=== PATIENT | male | born 1980 | race Caucasian/White ===

== ENCOUNTER 2020-04-27 23:29 | Emergency (ER) | payer SELFPAY ==
[~2020-04-27] VITALS: Ht 172.7 cm; Wt 99.8 kg
[2020-04-27] MEDS ORDERED: EPINEPHrine 0.1 MG/ML 10 ML (HOSPIRA) SYR IJ ONE (23:33)
[2020-04-27] MEDS ORDERED: SODIUM BICARB 8.4% 50 MEQ/50 ML (ABBOTT) SYR INJ ONE (23:33)
--- NOTE | 2020-04-27 23:48 | NUR ---
2332 PT ARRIVES [facility]IA [facility] WITH CPR IN PROGRESS. PT TRANSFERRED TO ER CART. CPR RESUMES. BVM VIA LMA PER RT. 2334 ECO2 40. CPR HELD FOR PULSE CHECK. PEA SHOWING ON MONITOR. RESUMED COMPRESSIONS. 2335 1MG EPINEPHRINE IO PUSH 2337 CPR HELD FOR PULSE CHECK. ASYSTOLE WITH AGONAL BEATS SHOWING ON MONITOR. RESUMED COMPRESSIONS. 2338 50MEQ/50ML SODIUM BICARB IO PUSH 2341 CPR HELD FOR PULSE CHECK. ASYSTOLE WITH AGONAL BEATS SHOWING ON MONITOR. RESUMED COMPRESSIONS. 2342 1MG EPINEPHRINE IO PUSH 2343 CPR HELD FOR PULSE CHECK. PEA ON MONITOR SHOWING ON MONITOR. RESUMED COMPRESSIONS. 2346 1MG EPINEPHRINE IO PUSH 2347 CPR HELD FOR PULSE CHECK. ASYSTOLE SHOWING ON MONITOR. 2348 TIME OF [address] STILL
[2020-04-28 00:15] LABS: BILIRUBIN,URINE NEGATIVE (NEGATIVE); CLARITY,URINE CLEAR; COLOR,URINE YELLOW; GLUCOSE, URINE (UA) NEGATIVE (NEGATIVE); KETONES,URINE NEGATIVE (NEGATIVE); LEUKOCYTE ESTERASE ,URINE NEGATIVE (NEGATIVE); NITRITE,URINE NEGATIVE (NEGATIVE); PROTEIN,URINE TRACE (NEGATIVE)
[2020-04-28 00:28] LABS: ALBUMIN 2.5 GM/DL (3.2-4.5); BACTERIA,URINE FEW /HPF; CHLORIDE 115 MMOL/L (98-107); RENAL EPITHELIAL CELLS,URINE 0-2 /HPF; SODIUM 152 MMOL/L (135-145); URINE OTHER FEW SPERM /HPF; WBC,URINE 0-2 /HPF
[2020-04-28 00:29] LABS: AMPHETAMINE SCREEN, URINE POSITIVE (NEGATIVE); BARBITURATE SCREEN URINE NEGATIVE (NEGATIVE); BENZODIAZEPINES SCREEN URINE NEGATIVE (NEGATIVE); CALCIUM 6.7 MG/DL (8.5-10.1); CANNABINOID SCREEN, URINE NEGATIVE (NEGATIVE); COCAINE SCREEN URINE NEGATIVE (NEGATIVE); METHADONE STAT NEGATIVE (NEGATIVE); METHAMPHETAMINE SCREEN URINE S POSITIVE (NEGATIVE); OPIATE SCREEN URINE NEGATIVE (NEGATIVE); OXYCODONE STAT NEGATIVE (NEGATIVE); PROPOXYPHENE STAT NEGATIVE (NEGATIVE); TRICYCLIC ANTIDEPRESSANTS SCRE NEGATIVE (NEGATIVE)
[2020-04-28 00:30] LABS: GLUCOSE 223 MG/DL (70-105)
[2020-04-28 00:31] LABS: CARBON DIOXIDE 16 MMOL/L (21-32)
[2020-04-28 00:32] LABS: BILIRUBIN,TOTAL 0.2 MG/DL (0.1-1.0)
[2020-04-28 00:34] LABS: ALKALINE PHOSPHATASE 103 U/L (40-136); CREATININE SERUM 0.77 MG/DL (0.60-1.30); GFR ESTIMATED > 60
[2020-04-28 00:35] LABS: BUN/CREATININE RATIO 16
[2020-04-28 00:37] LABS: ALANINE AMINOTRANSFERASE 181 U/L (0-55)
--- NOTE | 2020-04-28 00:52 | NUR ---
AWAIS JENNINGS CONTACTED THIS RN REQUESTING PT INFORMATION STATING SHE IS PTS . AWAIS PLACED ON HOLD. 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 THIS RN NOTIFIED [place] [employer]PT[employer]MENT OF AWAIS REQUESTING PT STATUS. AWAIS JENNINGS [phone]
--- NOTE | 2020-04-28 01:11 | NUR ---
CONTACTED [employer]. [phone]
--- NOTE | 2020-04-28 01:14 | ED CPR ---
HPI-CPR General Chief Complaint: Code Blue Stated Complaint: CODE BLUE Source of Information: Patient Exam Limitations: No Limitations History of Present Illness Date Seen by Provider: Apr 27, 2020 Time Seen by Provider: 23:32 Initial Comments Here by EMS with report of being found down in the front yard. Apparently igor naidu's roommate called 911 and said that he thought Claudio was and he was face down in the front yard. On law enforcement arrival, patient was pulseless and apneic and CPR was initiated. On EMS arrival patient remained in cardiopulmonary arrest and initial rhythm was asystole. They did initiate ACLS procedures in the field including CPR and did establish IV via intraosseous acc ess to the left tib-fib and initiated fluid. Patient did have 2 rounds of CPR in the field and had epinephrine 1 mg IV given twice. Patient remained in asystole. On arrival, CPR continued. Patient did have size [address] and respirations via bag valve mask. Initial Complaints: Found Unresponsive Witnessed Arrest: No Bystander CPR: No Paramedics Initial Findings: Asystole, No Pulse, No Respirations Paramedics' Initial Vital Sign: No vital signs Pre Hospital Treatment: Bag Valve Mask, CPR/Thumper, Oxygen, IV Fluids, Epinephrine (mg) (2) Allergies and Home Medications Allergies Coded Allergies: No Allergy Information Available (Unverified , 04/28/20) Patient Home Medication List Home Medication List Reviewed: No Review of Systems Review of Systems Constitutional: no symptoms reported Other Comments Unable to obtain as patient was unresponsive with CPR in progress Past Dezdikm-Mwmdlv-Aquccn Hx Family Medical History No history available and patient unable to provide history. Law enforcement notes history of drug abuse Physical Exam Vital Signs Vital Signs - First Documented 04/28/20 00:15 O2 Delivery Ambu Bag FiO2 100 Capillary Refill : Height, Weight, BMI Height: '" Weight: lbs. oz. kg; BMI Method: General Appearance: Other (Unresponsive with CPR in progress and respirations via [id number]) HEENT: Other (Fixed and dilated) Respiratory: Other (Respirations via [id number]) Cardiovascular: Other (No pulse) Gastrointestinal: Other (Soft without significant distention) Extremity: Other (Intraosseous device to the left proximal tib-fib) Neurologic/Psychiatric: Other (Unresponsive) Skin: Cool, Pallor Progress/Results/Core Measures Results/Orders Lab Results Laboratory Tests Test 1/20/21 23:48 Range/Units Urine Color YELLOW Urine Clarity CLEAR Urine pH 6.0 5-9 Urine Specific [place] >=1.030 1.016-1.022 Urine Protein TRACE H NEGATIVE Urine Glucose (UA) NEGATIVE NEGATIVE Urine Ketones NEGATIVE NEGATIVE Urine Nitrite NEGATIVE NEGATIVE Urine Bilirubin NEGATIVE NEGATIVE Urine Urobilinogen >=8.0 < = 1.0 MG/DL Urine Leukocyte Esterase NEGATIVE NEGATIVE Urine RBC (Auto) 1+ H NEGATIVE Urine RBC 10-25 H /HPF Urine WBC 0-2 /HPF Urine Squamous Epithelial Cells NONE /HPF Urine Renal Epithelial Cells 0-2 /HPF Urine Crystals NONE /LPF Urine Bacteria FEW H /HPF Urine Casts NONE /LPF Urine Mucus MODERATE H /LPF Urine Other FEW SPERM H /HPF Urine Culture Indicated NO Sodium Level 152 H 135-145 MMOL/L Potassium Level 6.0 H 3.6-5.0 MMOL/L Chloride Level 115 H 98-107 MMOL/L Carbon Dioxide Level 16 L 21-32 MMOL/L Anion Gap 21 H 5-14 MMOL/L Blood Urea Nitrogen 12 7-18 MG/DL Creatinine 0.77 0.60-1.30 MG/DL Estimat Glomerular Filtration Rate > 60 BUN/Creatinine Ratio 16 Glucose Level 223 H 70-105 MG/DL Calcium Level 6.7 L 8.5-10.1 MG/DL Corrected Calcium 7.9 L 8.5-10.1 MG/DL Total Bilirubin 0.2 0.1-1.0 MG/DL Aspartate Amino Transf (AST/SGOT) 210 H 5-34 U/L Alanine Aminotransferase (ALT/SGPT) 181 H 0-55 U/L Alkaline Phosphatase 103 40-136 U/L Troponin I < 0.028 <0.028 NG/ML Total Protein 6.0 L 6.4-8.2 GM/DL Albumin 2.5 L 3.2-4.5 GM/DL Urine Opiates Screen NEGATIVE NEGATIVE Urine Oxycodone Screen NEGATIVE NEGATIVE Urine Methadone Screen NEGATIVE NEGATIVE Urine Propoxyphene Screen NEGATIVE NEGATIVE Urine Barbiturates Screen NEGATIVE NEGATIVE Ur Tricyclic Antidepressants Screen NEGATIVE NEGATIVE Urine Phencyclidine Screen NEGATIVE NEGATIVE Urine Amphetamines Screen POSITIVE H NEGATIVE Urine Methamphetamines Screen POSITIVE H NEGATIVE Urine Benzodiazepines Screen NEGATIVE NEGATIVE Urine Cocaine Screen NEGATIVE NEGATIVE Urine Cannabinoids Screen NEGATIVE NEGATIVE Coronavirus 2019 ([facility]) Negative Negative My Orders Orders - NOELLE STILL MD Comprehensive Metabolic Panel (04/28/20 00:06) Drug Screen Stat (Urine) (04/28/20 00:06) Troponin I (04/28/20 00:06) Ua Culture If Indicated (04/28/20 00:06) Covid 19 Inhouse Test (04/28/20 00:06) Vital Signs/I&O 04/28/20 00:15 O2 Delivery Ambu Bag FiO2 100 04/28/20 00:00 Intake Total 250 ml Balance 250 ml Progress Progress Note : Progress Note Seen on arrival. CPR continued. Initial pulse check at 2334 shows PEA with end-tidal CO2 of 40. Continued ventilation via bag valve mask and supraglottic airway. 2337: Patient noted to have asystole with agonal beats. We did give sodium bicarb 1 amp IV. 2342: Patient remains in asystole with agonal beats. Epinephrine 1 mg IV given. O2 sat did improve with good CPR. 2346: Patient had brief episode of PEA but now returns to asystole. Epinephrine 1 mg IV given. 2348: Patient remains in asystole. Bedside ultrasound shows no cardiac movement. Patient's downtime has been greater than 45 minutes known. No return of spontaneous circulation. Resuscitation efforts ceased and time of 2348. 0015: Tents [employer] notified and will take case. I did speak with patient's mother, Avtar Bae who resides in [place]. She was notified of . Also notified of corner case. 0110: Corner is in the emergency department. Patient's mother has called and asked for last rights which we will notify . Labs that we are able to obtain have been reviewed. Departure Impression Primary Impression: Cardiopulmonary arrest Additional Impression: Methamphetamine abuse Disposition: 20 Condition: Departure-Patient Inst. Referrals: UNKNOWN (PCP/Family) Primary Care Physician NOELLE STILL MD Apr 28, 2020 01:14
== END 2020-04-28 02:20 | disposition expired ==
LOC: ER 23:32
DX: I46.9 Cardiac arrest, cause unspecified (principal); F15.10 Other stimulant abuse, uncomplicated; Z20.822 Contact with and (suspected) exposure to COVID-19
CPT/HCPCS: 36680; 80053; 80306; 81000; 84484; 99284; U0002; 36415; 87635